=== PATIENT | male | born 1975 | race Caucasian/White ===

== ENCOUNTER 2025-05-05 02:24 | Emergency (ER) | payer BC, SELFPAY ==
--- OUTSIDE RECORDS SUMMARY | 2025-05-05 02:26 | XMS_ITS | Clinical Summary ---
Author Organization [facility] Address [address] [place] [id number] Care Team Providers Care Change Lead Name Role Phone Ariadna Bettencourt Primary Primary Care Provider Unavailabl e Allergies Active Allergy Reactions Criticality Noted Date Comments Penicillins *Unknown 03/19/2023 Medications No known medications Immunizations Immunization Administration Dates Next Due Influenza, IIV4 09/25/2017 Tdap 09/25/2017 Social History Tobacco Use Types Packs/Day Years Used Date Smoking Tobacco: Never Assessed Social Connections Answer Date Recorded Frequency of Communication with Friends and Fami ly Not on file 03/19/2023 Sex and Gender Information Value Date Recorded Sex Assigned at Not on file Legal Sex Male 5:24 AM [employer] Gender Identity Not on file Sexual Orientation Not on file Last Filed Vital Signs Vital Sign Reading Time Taken Comments Blood Pressure 141/90 03/26/2023 10:36 AM CDT Pulse 89 03/26/2023 10:36 AM CDT Temperature - - Respiratory Rate - - Oxygen Saturation 98% 03/26/2023 10:36 AM CDT Inhaled Oxygen Concentration - - Weight 59 kg (130 lb) 03/26/2023 10:36 AM CDT Height - - Body Mass Index - - Plan of Treatment Health Maintenance Due Date Last Done Comments Depression screening for age 12+ 1986 HIV for age 15-65 1989 BMI (ht and wt on same day) for age 18+ 1992 Hepatitis C screening for age 18-79 1992 Hepatitis B series for 19+ ( 1 of 3 - 19+ 3-dose series) 1993 Colonoscopy through age 75 2019 Lipids for age 45-75 2019 Pneumococcal series for age 50+ (1 of 1 - PCV) 2024 Zoster (shingles) series for age 50+ (1 of 2) 2024 COVID-19 vaccine series (4 - 2024- season) 2025 06/25/2021, 11/13/2020, 10/23/2020 Influenza Vaccine (#1) 2025 09/25/2017 Tetanus booster 09/25/2027 09/25/2017 RSV vaccine for adults or pr egnancy (1 - 1-dose 75+ series) 2049 Insurance MEDICA CHOICE [facility] BILL PROCESSING Care Teams Change Lead Relationship Specialty Start Date End Date , No Primary . PCP - General 05/24/06
[2025-05-05 02:31] VITALS: BP 153/109; PULSE 109; RESP 56; TEMP 36.5; O2SAT 91; BMI 21.0
[2025-05-05] MEDS: IPRAT-ALBUT 0.5-2.5 MG/3 ML NEB 1 NEB IH (02:38)
--- NOTE | 2025-05-05 02:46 | CRLHL7_ITS ---
For Patients: As a result of the Cures Act, medical imaging exams and procedure reports are released immediately into your electronic medical record. You may view this report before your referring provider. If you have questions, please contact your health care provider. INDICATION: COPD. TECHNIQUE: Chest 2 views. COMPARISON: None. FINDINGS: Cardiovascular and mediastinum: Cardiomediastinal silhouette is within normal limits. Lungs and pleural spaces: Hyperinflated lungs. No consolidation. No pleural effusions or pneumothorax. Bones and soft tissues: No significant findings. IMPRESSION: 1. Hyperinflated lungs, which may be seen in the setting of COPD. 2. No consolidation. Dictated by Duy Ayala MD @ 05/05/2025 3:05:22 AM (Electronically Signed)
--- NOTE | 2025-05-05 02:49 | ED.GENADULT ---
HPI - General Adult General Chief complaint: Cough Stated complaint: cough/difficulty breathing Time Seen by Provider: 05/05/25 02:29 Source: patient Mode of arrival: ambulatory Limitations: no limitations History of Present Illness HPI narrative: 49-year-old male presents to the emergency department for evaluation of dyspnea. Has had mild cough and shortness of breath on exertion for the past 5 days. No trauma or injury. No fever. Does smoke. No prior diagnosis of COPD, does not have inhalers on hand. No prior similar flares. No pertinent travel. No known sick exposures. Did not have any interventions to try prior to coming to ED. cough is nonproductive. No chest pain or cardiac symptoms. No long-term medical problems. Fully vaccinated as a child. No long-term medications, allergy to penicillin noted. Tobacco user. ROS is notable for the respiratory symptoms only, otherwise denies times 12 systems. Related Data Home Medications ?Medication ?Instructions ?Recorded ?Confirmed dextromethorphan-guaifenesin ER 60 1 tab PO BID 05/05/25 05/05/25 mg-1,200 mg tab,extend release,12hr (Mucinex DM) ibuprofen 200 mg tablet (Advil) 400 mg PO Q6-8H PRN 05/05/25 05/05/25 Previous Rx's ?Medication ?Instructions ?Recorded albuterol sulfate 90 mcg/actuation 2 puff inhalation Q4-6H PRN 05/05/25 aerosol inhaler shortness of breath or wheezing #8.5 grams azithromycin 250 mg tablet See Rx Instructions PO .COMPLEX #6 05/05/25 tabs inhalational spacing device #1 ea 05/05/25 (Aerochamber Plus Flow-Vu) prednisone 20 mg tablet 20 mg PO BID 5 days #10 tabs 05/05/25 Allergies Allergy/AdvReac Type Severity Reaction Status Date / Time Penicillins Allergy Unknown Verified 05/05/25 02:39 Exam Const: Vital Signs, click to edit/add: Vital Signs - 24 hr 05/05/25 02:31 Temperature 97.7 F Pulse Rate [Left P ulse Oximeter] 109 H Respiratory Rate 56 H Blood Pressure [Ri ght Upper Arm] 153/109 H Pulse Oximetry 91 Oxygen Delivery Me thod Room Air Documenting provider has reviewed patient's vital signs: yes General appearance: well kempt Other: Mild respiratory distress, improved rapidly with initial DuoNeb. Good historian. Well nourished well hydrated. HENMT: Common normals: normocephalic, moist oral mucous membranes and oropharynx normal Head and scalp: normocephalic Face and sinus: normal facial exam Mouth: oral and palatal mucosa normal Throat: posterior oropharynx normal Eye: Common normals: conjunctivae normal General eye: normal appearance of both eyes Conjunctiva: conjunctiva(e) normal Neck & C-Spine: Common normals: full ROM and no lymphadenopathy General: normal visual inspection Chest: Common normals: inspection of chest normal Resp: Other: Tachypnea with mild retractions. Expiratory wheeze throughout. Prolonged expiration 3-1 ratio. Cardio: Common normals: regular rate, regular rhythm, S1 normal heart sound, S2 normal heart sound and no murmurs Rate: regular rate Rhythm: regular rhythm Heart sounds: S1 normal and S2 normal GI: Common normals: Normal to inspection, nondistended, normoactive bowel sounds present, soft to palpation, non-tender, no hepatosplenomegaly and no masses Palpation: soft and no hepatosplenomegaly Extremity: Common normals: normal to inspection and no pedal edema Psych: Common normals: speech normal Appearance: well kempt Attitude: engaged Activity/motor behavior: appropriate eye contact Speech: normal speech Mood and affect: euthymic mood Thought content: normal thought content Insight: insight good Judgement: judgment good Skin: Common normals: no rashes or lesions noted General skin exam: no rashes or lesions noted Course Course ED Course: 49-year-old male with tachypnea, borderline low oxygen saturations, severe wheezing with history of smoking, suspicious for COPD exacerbation. No prior diagnosis of COPD. Differential diagnosis also including pneumonia, reactive airway disease, pneumothorax, bronchitis, congestive heart failure, pulmonary embolism, amongst others. Impressive wheezing, DuoNeb administered very promptly upon arrival. By the time I completed my interview, patient is already feeling markedly better. Will give 40 of oral prednisone, 500 of azithromycin, viral swabs and chest x-ray. Blood work is not likely to be beneficial based on initial significant clinical response. Counseled patient that he does likely have underlying COPD. Smoking cessation is advised. He will benefit from primary care follow-up and a COPD control medication as well. Will plan to give another albuterol neb prior to discharge after x-ray and viral swabs are back. Will plan to go home on prednisone 20 b.i.d., Z-Erasmo, albuterol inhalers. Reevaluation(s) Time of Reevaluation #1: 03:34 Reevaluation #1: Patient continues to improve. Negative viral swabs and chest x-ray results reviewed. No signs of pneumonia or CHF but he does have some early changes suggestive of emphysema and COPD. Not surprising. Re-examination of the lungs shows that the wheezing continues to improve, sounds like the steroids start to kick in. It is only about 330, I am worried about him getting through the night we do not have a 24 hour pharmacy within about an hour of us. Because of this will give 1 more albuterol neb prior to discharge. Patient counseled on next dosing for the steroid, the antibiotic and picking up the albuterol right away. 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 Alarm symptoms reviewed that would warrant ED re-evaluation. He verbalizes understanding and agreement Vital Signs Vital signs: Initial Vital Signs Temperature 97.7 F 05/05/25 02:31 Temperature Source Temporal Artery Scan 05/05/25 02:31 Pulse Rate 109 H 05/05/25 02:31 Respiratory Rate 56 H 05/05/25 02:31 Blood Pressure 153/109 H 05/05/25 02:31 Blood Pressure Mean 123 H 05/05/25 02:31 Blood Pressure Position Sitting 05/05/25 02:31 Pulse Oximetry 91 05/05/25 02:31 Oxygen Delivery Method Room Air 05/05/25 02:31 Vital Signs Temperature 97.7 F 05/05/25 02:31 Pulse Rate 109 H 05/05/25 02:31 Respiratory Rate 56 H 05/05/25 02:31 Blood Pressure 153/109 H 05/05/25 02:31 Pulse Oximetry 91 05/05/25 02:31 Oxygen Delivery Method Room Air 05/05/25 02:31 Temperature 97.7 F 05/05/25 02:31 Pulse Rate 109 H 05/05/25 02:31 Respiratory Rate 56 H 05/05/25 02:31 Blood Pressure 153/109 H 05/05/25 02:31 Pulse Oximetry 91 05/05/25 02:31 Oxygen Delivery Method Room Air 05/05/25 02:31 Medications Administered Medications: Discontinued Medications Generic Name Dose Route Start Last Admin Trade Name Trent PRN Reason Stop Dose Admin Albuterol/Ipratropium 1 neb 05/05/25 02:35 05/05/25 02:38 Iprat-Albut 0.5-2.5 Mg/3 Ml Neb IH 05/05/25 02:36 1 neb ONCE ONE Administration Azithromycin 500 mg 05/05/25 02:46 05/05/25 02:50 Azithromycin 250 Mg Tablet PO 05/05/25 02:47 500 mg ONCE ONE Administration Prednisone 40 mg 05/05/25 02:46 05/05/25 02:50 Prednisone 20 Mg Tablet PO 05/05/25 02:47 40 mg ONCE ONE Administration Medical Decision Making Lab Data Lab results reviewed: Yes I reviewed the patient's lab results Lab results narrative: Viral swabs negative, as expected. Labs: Lab Results 05/05/25 Range/Units 02:30 SARS-CoV-2 (PCR) Negative SARS-CoV-2 (Negative) Influenza Type A (PCR) Negative PCR FLU A (Negative) Influenza Type B (PCR) Negative PCR FLU B (Negative) RSV (PCR) Negative PCR RSV (Negative) Imaging Data Chest x-ray: Attestation: I have reviewed the pertinent imaging results. My impression: Early emphysema changes but no pneumonia, pneumothorax or signs of heart failure. Radiologist's impression: IMPRESSION: 1. Hyperinflated lungs, which may be seen in the setting of COPD. 2. No consolidation. Dictated by Duy Ayala MD @ 05/05/2025 3:05:22 AM (Electronically Signed) Discharge Plan Discharge Clinical Impression: Acute exacerbation of chronic obstructive pulmonary disease Patient Disposition: Home, Self-Care Condition: Improved Instructions: Chronic Bronchitis (DC) Additional Instructions: As we discussed, what happened was a flare up of COPD, chronic obstructive pulmonary disease. This happens when you get exposed to a virus that normally makes other people just mildly ill. In someone with underlying chronic lung disease, there lungs can get dangerously infected and inflamed from what would otherwise be a fairly simple illness. It is not unusual that we diagnosis COPD for the 1st time when someone has a flare up like this. Otherwise, the aging of the lungs can feel so gradual that you really may not notice it on a day-to-day basis. Unfortunately once you start having the severe flare ups, your lungs do tend to age more rapidly and you tend to be more symptomatic even in your every day life. I can stress enough that the best thing you could do to help your lung help would be to quit smoking. But I do respect that that is a difficult journey but I encourage you to started as soon as possible. There are special inhalers that can be used to help slow the progression of COPD. Please make an appointment with a primary care doctor to talk more about these next week. Your chest x-ray shows COPD but no pneumonia, collapsed lung or tumors. This is overall quite reassuring. To treat this flare up, you were given a breathing treatment in the ED, it was repeated about an hour later just for maximum affect. Your started on prednisone, an anti-inflammatory steroid and an antibiotic called azithromycin. You will continue taking prednisone 1 pill 2 times daily for the next 5 days. Try to take this morning and early evening. Do not take it within 3 hours of bedtime, as it will cause insomnia. It is okay if your 2 doses are not exactly 12 hours apart. The dose your given this morning will count as your Sunday morning dose, but be sure not to skip your Sunday evening dose, you will need to pick this up at the pharmacy. The antibiotic will be azithromycin, you have already been given your Sunday dose. Your next dose of that will be on Sunday morning, it is taken once daily. I am also giving you an inhaler. Use this up to every 4 hours as needed for severe shortness of breath. It does work better if you use it with a spacer. I have prescribed this also. I find that there are many online videos they give great instructional videos explaining how to use these. Most people do markedly better in about 48 hours but it will take 2 weeks for this to heal completely. Please make that follow-up with a primary care doctor so that we can ensure things heal as best as possible. Return to the emergency department if you have severe shortness of breath in the inhalers are not helping. Activity Level: Activity as Tolerated Discharge Diet: Regular Prescriptions: New prednisone 20 mg tablet 20 mg PO BID 5 Days Qty: 10 1RF azithromycin 250 mg tablet See Rx Instructions PO .COMPLEX Qty: 6 0RF Rx Instructions: For 250 mg dose pack: take 500 mg today (day 1), then 250 mg for 4 days (days 2-5) albuterol sulfate 90 mcg/actuation HFA aerosol inhaler 2 puff inhalation Q4-6H PRN (Reason: shortness of breath or wheezing) Qty: 8.5 8RF (DME) Aerochamber Plus Flow-Vu Spacer See Rx Instructions .Route Qty: 1 1RF Rx Instructions: As directed No Action dextromethorphan-guaifenesin [Mucinex DM] 60-1,200 mg tablet extended release 12 hr 1 tab PO BID ibuprofen [Advil] 200 mg tablet 400 mg PO Q6-8H PRN Follow Up/Referrals: Brown Ruiz MD [Primary Care Provider, Family Practice] Stand Alone Forms: [employer] Info Instructions
[2025-05-05] MEDS: AZITHROMYCIN 250 MG TABLET 500 MG PO (02:50)
[2025-05-05 03:16] LABS: PCR FLU A Negative PCR FLU A (Negative); PCR FLU B Negative PCR FLU B (Negative); PCR RSV Negative PCR RSV (Negative); SARS PCR* Negative SARS-CoV-2 (Negative)
[2025-05-05] MEDS: ALBUTEROL SULFATE 2.5 MG/3 ML VIAL.NEB NEB (03:42)
== END 2025-05-05 03:58 | disposition home or self-care (01) ==
PROVIDERS: Emergency Provider Family Medicine; PCP Family Medicine
DX: J44.1 Chronic obstructive pulmonary disease with (acute) exacerbation (principal)
CPT/HCPCS: 71046; 87631; 94640; 99284; A9270; J7512